=== PATIENT | female | born 1930 | race Caucasian/White ===

== ENCOUNTER 2017-09-04 07:41 | Emergency (ER) | payer MEDICARE ==
[~2017-09-04] VITALS: Ht 157.5 cm; Wt 52.2 kg
[2017-09-04 07:41] VITALS: BP 150/78; PULSE 93; RESP 19; TEMP 97.8; O2SAT 95
[~2017-09-04 07:41] MED LIST: ASPI81TA2 PO; FAMO20TA98 PO; HYDR-1189 PO; MEMA10SO PO; MEMA28CA PO; SER25 PO
--- NOTE | 2017-09-04 07:41 | NUR ---
Pt placed in bed 4 by BLS and report endorsed to Fatimah CANCINO
--- NOTE | 2017-09-04 07:42 | NUR ---
Dr. Ybarra at bedside for evaluation
--- NOTE | 2017-09-04 07:43 | NUR ---
Received Pt in bed 4. Pt was brought by EMT. EMT stated Pt had fell at [place]. Fall was unwitnessed by staff. Pt awake, alert, orientated x1 to self. Pt has episode of forgetfulness and confusion. Pt able to simple follow commands. Garble speech noted. Left brow hematoma noted. Skin intact. Pt verbalized pain with light palpation. PERRLA noted. No facial drooping noted. Pt able to move BUE and BLE equally. BUE and BLE muscle strength 3/5. Pt has a Hx of dementia and CVA. Currently awaiting new orders from Dr. Ybarra.
[2017-09-04] MEDS ORDERED: LORazepam 1 MG TABLET PO ONE (08:00)
[2017-09-04] MEDS ORDERED: ALEN10TA6 PO (08:04)
[2017-09-04] MEDS ORDERED: POLY17PO4 PO (08:04)
[2017-09-04] MEDS ORDERED: MELO15TA13 PO (08:04)
[2017-09-04] MEDS ORDERED: IBUP-1969 PO (08:04)
[2017-09-04] MEDS ORDERED: ACET325T53 PO (08:04)
[2017-09-04] MEDS ORDERED: DOCU-144 PO (08:04)
[2017-09-04] MEDS ORDERED: VIT1CAPS32 PO (08:04)
[2017-09-04] MEDS ORDERED: LORA-258 PO (08:04)
--- NOTE | 2017-09-04 08:04 | NUR ---
Medication reconciliation completed with information provided by Jamari REARDON. Any prior medication reconciliation on file was reviewed and corrected.
[2017-09-04 08:29] LABS: BASOPHILS % (AUTO) 0.4 % (0.0-2.0); EOSINOPHILS % (AUTO) 0.6 % (0.0-4.0); HEMATOCRIT 37.4 % (36-48); HEMOGLOBIN 12.3 g/dL (12.0-16.0); LYMPHOCYTES # (AUTO) 0.6 K/uL (1.0-5.5); LYMPHOCYTES % (AUTO) 11.9 % (20.5-51.5); MEAN CORPUSCULAR HEMOGLOBIN 32 pg (27-31); MEAN CORPUSCULAR HGB CONC 33 % (32-36); MEAN CORPUSCULAR VOLUME 97 fL (79.0-98.0); MONOCYTES # (AUTO) 0.3 K/uL (0.0-1.0); MONOCYTES % (AUTO) 6.6 % (1.7-9.3); NEUTROPHILS # (AUTO) 4.1 K/uL (1.8-7.7); NEUTROPHILS % (AUTO) 80.5 % (40.0-70.0); PLATELET COUNT (AUTO) 138 K/uL (130-430); RED BLOOD CELL COUNT(AUTO) 3.84 MIL/uL (4.2-6.2); RED CELL DISTRIBUTION WIDTH 13.3 % (9.0-15.0)
[2017-09-04 08:44] LABS: ANION GAP 9 (5-15); CHLORIDE 107 mmol/L (98-107); CREATININE 0.94 mg/dL (0.55-1.30); GLUCOSE 133 mg/dL (70-99); POTASSIUM 3.2 mmol/L (3.5-5.1); SODIUM SERUM 145 mmol/L (136-145); UREA NITROGEN, BLOOD 27 mg/dL (8-21)
[2017-09-04 08:53] LABS: ALANINE AMINOTRANSFERASE 12 U/L (12-78); ALBUMIN 3.6 g/dL (3.4-4.8); ASPARTATE AMINOTRANSFERASE 17 U/L (10-37); TOTAL BILIRUBIN 0.3 mg/dL (0.0-1.0)
[2017-09-04] MEDS ORDERED: POTASSIUM CHLORIDE 20 MEQ/PKT PACKET PO ONE (09:00)
[2017-09-04] MEDS ORDERED: NACL 0.9% 1,000 ML IV ONE (09:15)
--- NOTE | 2017-09-04 09:54 | NUR ---
Straight catheter was done with sterile technique, pt tolerated well. Will send urine to lab. Pt resting comfortably in bed.
[2017-09-04 10:13] LABS: BILIRUBIN,URINE NEGATIVE (NEGATIVE); BLOOD, URINE TRACE (NEGATIVE); CLARITY/URINE CLEAR (CLEAR); COLOR,URINE YELLOW (YELLOW); GLUCOSE,URINE NEGATIVE (NEGATIVE); KETONES,URINE NEGATIVE (NEGATIVE); LEUKOCYTE ESTERASE ,URINE NEGATIVE (NEGATIVE); NITRITE, URINE NEGATIVE (NEGATIVE); PROTEIN URINE NEGATIVE (NEGATIVE); UROBILINOGEN,URINE 0.2 (0.2-1.0)
[2017-09-04 10:17] LABS: BACTERIA,URINE FEW /HPF (None Seen); MUCUS,URINE 1+ /LPF (None Seen); RBC,URINE 0-3 /HPF (0-3); WBC,URINE NONE SEEN /HPF (0-3)
--- NOTE | 2017-09-04 10:35 | NUR ---
Pt resting comfortably in hospital bed.
--- NOTE | 2017-09-04 11:17 | NUR ---
Vital signs within normal range. Pt resting comfortably
[2017-09-04 12:21] VITALS: BP 131/76; PULSE 64; RESP 17; TEMP 97.9; O2SAT 97
--- NOTE | 2017-09-04 12:21 | NUR ---
Patient given written and verbal discharge instructions and verbalizes understanding. ER MD discussed with patient the results and treatment provided. Patient in stable condition. ID arm band removed. IV catheter removed intact and dressing applied, no active bleeding. No Rx given. Patient educated on pain management and to follow up with PMD. Pain Scale 0. Son took pt back to [place] and report was given to Neeru [employer] for questions provided and answered.
== END 2017-09-04 12:21 ==
LOC: SED 07:41
DX: S00.12XA Contusion of left eyelid and periocular area, initial encounter (principal); E87.6 Hypokalemia; E86.0 Dehydration; F03.90 Unspecified dementia, unspecified severity, without behavioral disturbance, psychotic disturbance, mood disturbance, and anxiety; K21.9 Gastro-esophageal reflux disease without esophagitis; Z79.82 Long term (current) use of aspirin; Z79.899 Other long term (current) drug therapy; W05.0XXA Fall from non-moving wheelchair, initial encounter; Y93.89 Activity, other specified; Y92.89 Other specified places as the place of occurrence of the external cause; Y99.8 Other external cause status
CPT/HCPCS: 36415; 70450; 70486; 80053; 81000; 82550; 84484; 85025; 93005; 96360; 99285; J7030; 96361